=== PATIENT | female | born 1945 | race Caucasian/White ===

== ENCOUNTER 2020-07-23 09:33 | Emergency (ER) | payer OTHER, SELFPAY ==
--- NOTE | 2020-07-23 09:44 | ED.FEMALEGU ---
HPI - Female Genitourinary General Chief complaint: Urogenital-Female Stated complaint: Urogential-Female Time Seen by Provider: 07/23/20 10:01 Source: patient and RN notes reviewed Mode of arrival: ambulatory Limitations: no limitations History of Present Illness HPI Narrative: 75-year-old female presents with concern for urinary tract infection. She reports 24-hour history of low back burning, urine urgency, frequency, dysuria. She denies any fever, nausea, vomiting, abdominal pain. Denies any intervention. MD elicited complaint: UTI Related Data Home Medications Medication Instructions Recorded Confirmed amlodipine 10 mg PO DAILY 07/23/20 07/23/20 atorvastatin 10 mg PO DAILY 07/23/20 07/23/20 famotidine 40 mg PO DAILY 07/23/20 07/23/20 loratadine 10 mg PO DAILY 07/23/20 07/23/20 losartan 50 mg PO DAILY 07/23/20 07/23/20 Allergies Allergy/AdvReac Type Severity Reaction Status Date / Time Penicillins Allergy syncope Verified 07/23/20 09:57 Review of Systems Review of Systems: Narrative: CONSTITUTIONAL: Denies malaise, chills, sweats, or fever. CARDIOVASCULAR: Denies chest pain, palpitations, or edema. RESPIRATORY: Denies cough or dyspnea. GASTROINTESTINAL: Denies abdominal pain, nausea, vomiting, diarrhea, bloody, or mucous stools. GENITOURINARY: Reports dysuria, frequency, urgency. Denies hematuria. MUSCULOSKELETAL: Reports low back burning. Denies myalgia. All systems reviewed & are unremarkable except as noted in HPI and below PMFSH Comments At time of signature, agree with nursing past medical, surgical, social and family history. There is no relevant family history pertinent to the presenting complaint Exam Narrative: Exam Narrative: GENERAL: Well-appearing, well-nourished, and in no acute distress. HEAD: Normocephalic. EYES: PERRLA, conjunctivae clear. NECK: Supple. No lymphadenopathy CHEST: Clear to auscultation. No respiratory distress. HEART: Regular rate and rhythm. ABDOMEN: Soft, nontender upon palpation, nondistended, normal active bowel sounds, no palpable or pulsatile masses, no guarding. No CVA tenderness SKIN: Warm, dry, no rash. NEURO: Alert and oriented x3. PSYCH: Normal mood and affect Course Course Emergency Course: Patient is aware of diagnosis, understands and agrees to treatment plan. Anticipatory guidance given. Patient agrees to follow-up as directed and is aware of reasons to seek care at the emergency department. Portions of this record may have been created with voice recognition software Vital Signs Vital signs: Vital Signs Temperature 98.1 F 07/23/20 09:55 Pulse Rate 83 07/23/20 09:55 Respiratory Rate 18 07/23/20 09:55 Blood Pressure 157/65 H 07/23/20 09:55 Pulse Oximetry 98 07/23/20 09:55 Temperature 98.1 F 07/23/20 09:55 Pulse Rate 83 07/23/20 09:55 Respiratory Rate 18 07/23/20 09:55 Blood Pressure 157/65 H 07/23/20 09:55 Pulse Oximetry 98 07/23/20 09:55 Reviewed. MDM - Female Genitourinary MDM Narrative Medical decision making narrative: Exam findings and UA show no acute concerns or changes; patient is non-toxic appearing and is in no distress. Patient is appropriate for outpatient treatment and follow-up. Lab Data Labs: Urine Glucose Negative Reference Range: Negative Urine Bilirubin Negative Reference Range: Negative Urine Ketone Negative Reference Range: Negative Urine Specific [place] 1.015 Reference Range:1.001-1.035 Urine Blood Negative Reference Range: Negative * * Urine pH 5.5
[2020-07-23 09:55] VITALS: BP 157/65; PULSE 83; RESP 18; TEMP 36.7; O2SAT 98
== END 2020-07-23 10:30 | disposition home or self-care (01) ==
PROVIDERS: Emergency Provider Nurse Practitioner; PCP Internal Medicine
DX: N39.0 Urinary tract infection, site not specified (principal); E78.00 Pure hypercholesterolemia, unspecified; I10 Essential (primary) hypertension; Z95.0 Presence of cardiac pacemaker; K21.9 Gastro-esophageal reflux disease without esophagitis; E11.9 Type 2 diabetes mellitus without complications; Z98.42 Cataract extraction status, left eye; Z98.41 Cataract extraction status, right eye; Z85.3 Personal history of malignant neoplasm of breast
CPT/HCPCS: 81003; 87086; 99203; G0463

== ENCOUNTER 2023-12-25 13:16 | Emergency (ER) | payer OTHER, SELFPAY ==
[2023-12-25 13:22] VITALS: BP 147/55; PULSE 66; RESP 20; TEMP 36.4; O2SAT 98
--- NOTE | 2023-12-25 13:46 | ED.SKABFB ---
HPI - Skin/Abscess/Foreign Bdy General Chief complaint: Skin/Abscess/Foreign Body Stated complaint: left leg wound Time Seen by Provider: 12/25/23 13:35 Source: patient, RN notes reviewed and old records reviewed Mode of arrival: ambulatory Limitations: no limitations History of Present Illness HPI narrative: 78 year old female who presents to [facility] with complaints of rash to her left leg since the 17 of November which seems to be getting worse. She reports that she initially thought she was bit by some bug but area has enlarged and it is red and warm to touch and she has noted some swelling to her left ankle. Patient reports that she has applied some antibacterial ointment denies any pain or fevers. MD complaint: rash, insect bite/sting and other (cellulitus) Onset (ago): week(s) (4) Location: LLE (anterior lower leg) Severity: moderate Treatments prior to arrival: other (antibacterial ointment) Related Data Home Medications Medication Instructions Recorded Confirmed amlodipine 10 mg tablet 10 mg PO DAILY 07/23/20 07/23/20 atorvastatin 10 mg tablet 10 mg PO DAILY 07/23/20 07/23/20 famotidine 40 mg tablet 40 mg PO DAILY 07/23/20 07/23/20 loratadine 10 mg capsule 10 mg PO DAILY 07/23/20 07/23/20 losartan 50 mg tablet 50 mg PO DAILY 07/23/20 07/23/20 carvedilol 6.25 mg tablet mg 12/25/23 citalopram 10 mg tablet mg 12/25/23 famotidine 20 mg tablet mg 12/25/23 fluticasone propionate 50 intranasal 12/25/23 mcg/actuation nasal spray,suspension losartan 100 mg tablet mg 12/25/23 Allergies Allergy/AdvReac Type Severity Reaction Status Date / Time Penicillins Allergy syncope Verified 07/23/20 09:57 Review of Systems Review of Systems: CONSTITUTIONAL: Denies fever, chills, or sweats. CARDIOVASCULAR: Denies chest pain, palpitations, or edema. RESPIRATORY: Denies cough or dyspnea. SKIN: Reports red rash to the anterior aspect of her left lower leg with warmth, no drainage noted MUSCULOSKELETAL: Denies joint pain or myalgia. NEUROLOGIC: Denies headache, numbness, or weakness. All systems reviewed & are unremarkable except as noted in HPI and below PMFSH Past Medical History Medical History (Updated 12/27/23 @ 13:48 by Rosanna Barrios NP) Breast cancer left breast with lymph nodes removed Diabetes Function kidney decreased GERD (gastroesophageal reflux disease) Hyperlipidemia Hypertension Urinary tract infection Surgical History Surgical History (Updated 12/27/23 @ 13:40 by Rosanna Barrios NP) H/O section x3 History of cataract removal with insertion of prosthetic lens History of cholecystectomy Tubal ligation status Social History Social History (Updated 12/27/23 @ 13:38 by Rosanna Barrios NP) Smoking status: Former smoker Additional smoking assessment comments: quit over 25 years ago Alcohol intake: unknown Substance use type: does not use Gender identity (if verbalized by the patient): Female Comments At time of signature, agree with nursing past medical, surgical, social and family history. There is no relevant family history pertinent to the presenting complaint Exam Narrative: GENERAL: Well-appearing, well-nourished, and in no acute distress. HEAD: Normocephalic, atraumatic. EYES: PERRLA, conjunctivae clear, and EOMI. ENT: Mucous membranes moist. Oropharynx without edema, erythema or lesions. NECK: Supple. No lymphadenopathy CHEST: Clear to auscultation. No respiratory distress.SAO2 98% on room air HEART: Regular rate and rhythm. SKIN: Warm, dry.? Patches of erythema and edema with no vesicles noted or drainage but noted warmth to anterior aspect left lower leg 3cm X 6cm NEURO:? Alert and oriented x3. PSYCH: Normal mood and affect Course Course Emergency Course: Patient is aware of diagnosis, understands and agrees to treatment plan.? Anticipatory guidance given.? Patient agrees to follow-up as directed and is aware of r
== END 2023-12-25 14:05 | disposition home or self-care (01) ==
PROVIDERS: Emergency Provider Registered Nurse; PCP Internal Medicine
DX: L03.116 Cellulitis of left lower limb (principal); Z87.891 Personal history of nicotine dependence; E11.9 Type 2 diabetes mellitus without complications; K21.9 Gastro-esophageal reflux disease without esophagitis; E78.5 Hyperlipidemia, unspecified; I10 Essential (primary) hypertension; Z85.3 Personal history of malignant neoplasm of breast
CPT/HCPCS: 99213; G0463